=== PATIENT | male | born 1975 | race Caucasian/White ===

== ENCOUNTER 2020-12-22 15:48 | Outpatient (CLI) | payer BC ==
--- NOTE | 2020-12-23 09:29 | XRAY Report ---
PROCEDURE: Chest 2 View X-Ray INDICATIONS: DRY COUGH TECHNIQUE: Two views of the chest were acquired. COMPARISON: None. FINDINGS: Surgical changes and devices: None. Lungs and pleura: No pleural effusions or pneumothorax. Lungs are clear. Mediastinum: Mediastinal contours appear normal. Heart size is normal. Bones and chest wall: No suspicious bony lesions. Overlying soft tissues appear unremarkable. IMPRESSION: No acute disease. Reviewed by: Mateus Wolfe MD on 12/23/2020 9:27 AM PDT Approved by: Mateus Wolfe MD on 12/23/2020 9:27 AM PDT Station ID: [id number]
== END 2020-12-22 23:59 | disposition home or self-care (01) ==
LOC: DI.N 15:48
PROVIDERS: ATTEND Family Medicine
DX: R05 Cough (principal)